=== PATIENT | female | born 1975 | race Caucasian/White ===

== ENCOUNTER → 2018-03-11 | Outpatient (CLI) | payer BC | LOC: GMAJ 09:37 | PROVIDERS: ATTEND Family Medicine | DX: Z00.00 Encounter for general adult medical examination without abnormal findings (principal) ==

== ENCOUNTER → 2018-03-16 | Outpatient (CLI) | payer BC ==
--- NOTE | 2018-03-16 10:41 | US ---
EXAM DESCRIPTION: Abdomen,Complete: Ultrasound. CLINICAL HISTORY: RUQ PAIN COMPARISON: None Available. TECHNIQUE: Transabdominal scannin-dimensional and Doppler modes. FINDINGS: Gallbladder: Normal size and echogenicity with no intraluminal stones or sludge. Normal wall thickness, 1.6 mm. No fluid. Nontender with transducer pressure. Common bile duct: 2.4 mm normal caliber and echoes. Liver: Right lobe long axis is 15.8 cm. Portal vein 1.0 cm caliber and hepatopedal flow. Normal echogenicity and homogeneous. Normal intrahepatic ducts. Smooth capsule. No ascites. Pancreas: Normal size and echogenicity. Duct not seen.. Abdominal aorta: Normal caliber from the proximal segment to the bifurcation. IVC: visualized; normal caliber. Spleen normal echogenicity; long axis measurement is 9.9 cm. Right kidney: 9.1 cm long axis. Normal cortical thickness and echogenicity. No hydronephrosis or perinephric fluid.. Left kidney: 9.3 cm long axis. Normal cortical thickness and echogenicity. No hydronephrosis or perinephric fluid.. IMPRESSION: No significant findings on ultrasound the abdomen. Normal size of the organs. Normal vascularity. Ducts are unremarkable. No ascites. Electronically signed by: Bernardo Hansen MD 03/16/2018 10:39 AM CDT
== END ==
LOC: US 07:43
PROVIDERS: ATTEND Family Medicine
DX: R10.11 Right upper quadrant pain (principal)

== ENCOUNTER → 2019-02-25 | Outpatient (CLI) | payer BC ==
--- NOTE | 2019-03-01 10:52 | MAM ---
EXAM DESCRIPTION: 3D Screening BILATERAL : Digital Mammography. CLINICAL HISTORY: 43 years Female SCREENING .. No complaints. No personal or family history of breast cancer. Menarche age 14. Childbirth. Premenopausal. No HRT. Bilateral breast augmentation. Lifetime risk of developing breast cancer (Tyrer-Cuzick model)(%): 7.3. COMPARISON: Baseline study at this facility. No prior reports available. TECHNIQUE: Bilateral CC and MLO projection full-field images, with Coco Implant Displacement digital tomosynthesis mammographic technique. Bilateral 2-D digital full-field images, MLO and CC projections, non-displaced. Bilateral digital 2-D full-field MLO images. Implant displaced, CC and MLO projections CAD not available for tomosynthesis or 2-D images. FINDINGS: The breast parenchymal density pattern is: Heterogeneously dense breast tissue, which may obscure small masses. No skin thickening or nipple retraction. Bilateral scattered microcalcifications. Focal asymmetry in the 12:00 position of the middle third of the right breast approximately 4 cm from the nipple. Also focal asymmetry 6:00 right breast. Bilateral some muscular saline implants with capsules intact where seen. No new focal, stellate mass or density, focal asymmetry , and no suspicious microcalcifications left breast. IMPRESSION: Focal asymmetries in the right breast. BI-RADS CATEGORY: 0 - INCOMPLETE- Need additional imaging evaluation. FOLLOW-UP: Recall for additional imaging: LM projection full-field 2-D and tomosynthesis without and with implant displacement. Directed right breast ultrasound of the regions of interest.. Written communication concerning the IMPRESSION and Follow-up, will be mailed to the patient and referring health care provider. Electronically signed by: Bernardo Hansen MD 03/01/2019 10:50 AM CDT
== END ==
LOC: MAMMO 10:53
PROVIDERS: ATTEND Family Medicine
DX: Z12.31 Encounter for screening mammogram for malignant neoplasm of breast (principal)

== ENCOUNTER → 2019-03-18 | Outpatient (CLI) | payer BC ==
--- NOTE | 2019-03-19 12:06 | US ---
EXAM DESCRIPTION: Diagnostic Mammo,Bilateral (accession [id number]), digital mammography. Breast,Right (accession [id number]): Ultrasound CLINICAL HISTORY: 43 yearsFemaleABNORMAL MAMMOGRAM focal asymmetry right breast. Bilateral breast implants.. No personal or family history of breast cancer. Menarche age 14. Childbirth. Premenopausal. No HRT. Lifetime risk of developing breast cancer (Tyrer-Cuzick model)(%): 7.3. COMPARISON: Bilateral screening digital breast tomosynthesis 25 February 2019. TECHNIQUE: Bilateral LM projection full-field images, Coco implant displacement technique, digital mammographic tomosynthesis technique. Bilateral 2-D digital full-field images. LM projection without implant displacement. CAD not available. . Transcutaneous scanning of the right utilizing diane-scale and Doppler modes. Scanning performed by the foreign law consultant ; observation by Dr. Hansen. FINDINGS: The breast parenchymal density pattern is: Heterogeneously dense breast tissue, which may obscure small masses. No skin thickening or nipple retraction solitary microcalcifications Mid- and posterior left breast. Focal asymmetry near the posterior nipple line and at the 6:00 position near the nipple. Bilateral silicon-derivative submuscular implants. Capsules appear intact where seen Ultrasound: Scanning of the retroareolar right breast. Mixture of fibroglandular and fatty tissues. No dominant solid mass or distinct cyst. No parenchymal edema or large calcifications. Overlying skin changes. Normal vascularity. IMPRESSION: Benign exam. BIRAD CATEGORY: 2 BENIGN FINDINGS. RECOMMENDATIONS: FOLLOW UP: Routine digital bilateral mammographic screening, one year interval from January 2019. Written communication explaining the IMPRESSION and follow-up, will be mailed to the patient and referring health care provider. The FINDINGS and the FOLLOW-UP plan were reviewed in person with the patient after the examination. According to the [employer], yearly mammograms are recommended starting at age 40 and continuing as long as a woman is in good health. Any breast change noted on a breast self-exam should be reported promptly to the patient's healthcare provider. Breast MRI is recommended for women with an approximately 20-25% or greater lifetime risk of breast cancer, including women with a strong family history of breast or ovarian cancer and women who have been treated for Hodgkin's disease. A negative mammographic report should not delay tissue diagnosis in patients with significant clinical history or physical findings. Extremely dense breast tissue limits the sensitivity of digital mammography. Electronically signed by: Bernardo Hansen MD 03/19/2019 12:05 PM CDT
== END ==
LOC: MAMMO 10:40
PROVIDERS: ATTEND Family Medicine
DX: R92.8 Other abnormal and inconclusive findings on diagnostic imaging of breast (principal)